=== PATIENT | male | born 1945 | race Caucasian/White ===

== ENCOUNTER 2020-05-11 08:15 | Day surgery (SDC) | payer OTHER ==
[2020-05-11 08:36] VITALS: BMI 25.4
[2020-05-11] MEDS ORDERED: PROPOFOL 20 ML ONE ×3 (08:47)
[2020-05-11 10:05] VITALS: TEMP 98
[2020-05-11 12:49] VITALS: BP 116/68; PULSE 68
== END 2020-05-11 11:10 | disposition home or self-care (01) ==
LOC: FASU-ENDO 08:15
PROVIDERS: ATTEND Internal Medicine Gastroenterology
PROC: 0DJD8ZZ Inspection of Lower Intestinal Tract, Via Natural or Artificial Opening Endoscopic (ICD-10-PCS; principal; 2020-05-11 09:27)
DX: Z01.818 Encounter for other preprocedural examination (principal); Z90.49 Acquired absence of other specified parts of digestive tract; K57.30 Diverticulosis of large intestine without perforation or abscess without bleeding; K64.8 Other hemorrhoids